=== PATIENT | male | born 1945 | race Caucasian/White ===

== ENCOUNTER → 2023-10-22 13:47 | Outpatient (REF) | payer MEDICARE, SELFPAY ==
[2023-10-22 17:53] LABS: Free T4 0.92 ng/dl (0.78-2.19); TSH 1.74 uIU/ml (0.47-4.68)
== END ==
LOC: RCS 13:47
PROVIDERS: ATTENDING PHYSICIAN Internal Medicine; FAMILY PHYSICIAN Internal Medicine Geriatric Medicine
DX: I42.8 Other cardiomyopathies (principal); I44.7 Left bundle-branch block, unspecified; I77.810 Thoracic aortic ectasia; E03.9 Hypothyroidism, unspecified
CPT/HCPCS: 36415; 84439; 84443; 93306

== ENCOUNTER → 2024-04-21 14:00 | Outpatient (REF) | payer MEDICARE, SELFPAY | LOC: RAD 14:00 | PROVIDERS: ATTENDING PHYSICIAN Internal Medicine; FAMILY PHYSICIAN Internal Medicine Geriatric Medicine | DX: R60.0 Localized edema (principal) | CPT/HCPCS: 93971 ==

== ENCOUNTER → 2024-08-29 09:59 | Outpatient (REF) | payer MEDICARE, SELFPAY ==
[2024-08-29 11:04] LABS: % Basophils 1.7 % (0-2); % Eosinophils 0.7 % (0-6); % Immature Granulocytes 0.1 % (0-0.5); % Lymphocytes 28.2 % (20.5-51.1); % Monocytes 7.5 % (1.7-9.3); % Neutrophils 61.8 % (42.2-75.2); Absolute Basophils 0.1 10^3/uL (0-0.2); Absolute Eosinophils 0.1 10^3/uL (0-0.7); Absolute Monocytes 0.5 10^3/uL (0.1-0.6); Absolute Neutrophils 4.4 10^3/uL (1.4-6.5); Hematocrit 48.3 % (39.0-52.0); Mean Corp Hgb Conc. 35.2 g/dL (33.0-37.0); Mean Corpuscular Hgb 32.5 pg (27.0-31.0); Mean Corpuscular Volume 92.4 fL (80.0-94.0); Mean Platelet Volume 9.4 fL (7.4-10.4); Nucleated Red Blood Cells % 0 % (-); Platelet Count 177 10^3/uL (130-400); Red Blood Cell Count 5.23 10^6/uL (4.70-6.10); Red Cell Dist. Width 13.2 % (11.5-14.5); Urine Albumin Negative (Neg - Trace); Urine Bilirubin Negative (Negative); Urine Character Clear (Clear); Urine Color Yellow; Urine Glucose Negative (Negative); Urine Ketone Negative (Negative); Urine Leukocyte Negative (Negative); Urine Nitrite Negative (Negative); Urine Occult Blood Negative (Negative); Urine Urobilinogen Negative (Neg - 1+); White Blood Cell Count 7.1 10^3/uL (4.8-10.8)
[2024-08-29 11:57] LABS: ALT (SGPT) 29 U/L (0-50); AST (SGOT) 32 U/L (17-59); Albumin 4.3 g/dl (3.5-5.0); Alkaline Phosphatase 52 U/L (38-126); Blood Urea Nitrogen 15 mg/dl (9-20); Calcium 9.7 mg/dl (8.4-10.2); Carbon Dioxide 26 mmol/L (22-30); Chloride 104 mmol/L (98-107); Glucose 102 mg/dl (70-99); HDL Cholesterol 74 mg/dl; LDL Cholesterol, Calculated 85 mg/dl; Potassium 4.5 mmol/L (3.5-5.1); Sodium 139 mmol/L (135-145); Total Cholesterol 181 mg/dl (50-199); Total Protein 7.3 g/dl (6.3-8.2); Triglyceride 110 mg/dl (10-149); Very Low Density Lipoprotein 22 mg/dl (0-30); eGFR > 60.00
[2024-08-29 12:02] LABS: Vitamin D, 25-OH*** 43.4 ng/mL (30-80)
[2024-08-29 12:16] LABS: PSA, Total - Screen 0.43 ng/ml (0.0-4.0)
== END ==
LOC: REG 09:59
PROVIDERS: ATTENDING PHYSICIAN Internal Medicine Geriatric Medicine
DX: E78.2 Mixed hyperlipidemia (principal); K58.9 Irritable bowel syndrome, unspecified; N40.0 Benign prostatic hyperplasia without lower urinary tract symptoms; E03.9 Hypothyroidism, unspecified; R73.03 Prediabetes; E78.00 Pure hypercholesterolemia, unspecified; E55.9 Vitamin D deficiency, unspecified; Z12.5 Encounter for screening for malignant neoplasm of prostate
CPT/HCPCS: 80053; 80061; 81003; 82306; 85025; G0103

== ENCOUNTER → 2024-12-16 15:59 | Outpatient (REF) | payer MEDICARE, SELFPAY ==
[2024-12-16 16:30] LABS: % Basophils 1.2 % (0-2); % Eosinophils 2.5 % (0-6); % Immature Granulocytes 0.1 % (0-0.5); % Lymphocytes 35.2 % (20.5-51.1); % Monocytes 9.9 % (1.7-9.3); % Neutrophils 51.1 % (42.2-75.2); Absolute Basophils 0.1 10^3/uL (0-0.2); Absolute Eosinophils 0.2 10^3/uL (0-0.7); Absolute Lymphocytes 2.4 10^3/uL (1.2-3.4); Absolute Monocytes 0.7 10^3/uL (0.1-0.6); Absolute Neutrophils 3.5 10^3/uL (1.4-6.5); Hematocrit 46.3 % (39.0-52.0); Hemoglobin 16.4 g/dL (13.0-18.0); Mean Corp Hgb Conc. 35.4 g/dL (33.0-37.0); Mean Corpuscular Hgb 32.3 pg (27.0-31.0); Mean Corpuscular Volume 91.3 fL (80.0-94.0); Mean Platelet Volume 9.4 fL (7.4-10.4); Nucleated Red Blood Cells % 0 % (-); Platelet Count 186 10^3/uL (130-400); Red Blood Cell Count 5.07 10^6/uL (4.70-6.10); Red Cell Dist. Width 13.6 % (11.5-14.5); Urine Albumin 1+ (Neg - Trace); Urine Bilirubin Negative (Negative); Urine Character Clear (Clear); Urine Color Yellow; Urine Glucose Negative (Negative); Urine Ketone Negative (Negative); Urine Leukocyte Negative (Negative); Urine Nitrite Negative (Negative); Urine Occult Blood Negative (Negative); Urine Urobilinogen Negative (Neg - 1+); White Blood Cell Count 6.9 10^3/uL (4.8-10.8)
[2024-12-16 16:37] LABS: Urine Bacteria Few (Negative); Urine Red Blood Cell 0-2 /HPF (0-2); Urine White Cell 0-2 /HPF (0-5)
[2024-12-16 16:44] LABS: Blood Urea Nitrogen 16 mg/dl (9-20); Calcium 9.9 mg/dl (8.4-10.2); Carbon Dioxide 26 mmol/L (22-30); Chloride 105 mmol/L (98-107); Glucose 151 mg/dl (70-99); Potassium 4.3 mmol/L (3.5-5.1); Sodium 140 mmol/L (135-145); eGFR > 60.00
== END ==
LOC: REG 15:59
PROVIDERS: ATTENDING PHYSICIAN Nurse Practitioner Family
DX: K59.00 Constipation, unspecified (principal); R10.2 Pelvic and perineal pain
CPT/HCPCS: 36415; 74018; 80048; 81003; 81015; 85025

== ENCOUNTER 2025-02-17 18:39 | Emergency (ER) | payer MEDICARE, SELFPAY ==
[2025-02-17 18:41] VITALS: BP 129/76
--- NOTE | 2025-02-17 20:29 | ED.GENMED ---
History of Present Illness
General
Chief Complaint: Skin Problem
Source: patient
Exam Limitations: none
Time Seen by Provider: 02/17/25 19:17
Nursing documentation reviewed up to this point in time: agreed with
History of Present Illness
History of Present Illness:
Patient states he sustained a crush injury to his thumb while on a boat fishing today. COmplains of pain and bleeding to distal right thumb. Brought to ED by spouse for roland
Past History
Past History
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
ED Past Surgical History: Cardiac (ICD) and Orthopedic (Right knee surgery)
Social History
Tobacco: Non-smoker
Alcohol: None
Drug: None
Personal:
Living: with family
Review of Systems
Review of Systems
Allergies reviewed?: Yes
All Other Systems: ROS reviewed and negative except as documented in HPI and ROS
Constitutional: Reports no symptoms
Musculoskeletal: Reports joint pain (pain swelling and brusing to distal right thumb)
Skin: Reports no symptoms
Neurological: Reports no symptoms
Psychiatric: Reports no symptoms
Phy Exam
General Physical Exam
General Presentation: well appearing and mild distress
General age: appears stated age
General Skin: warm and dry
General Habitus: normal
General Mental: alert
Musculoskeletal Exam
Musculoskeletal Exam: full ROM and neuro vasc intact
Skin Exam
Skin Exam: other (right thumb subungal hematoma. Digital block with lidocaine 1%, subungal hematoma drained using hot tip cautery.)
Psychiatric Exam
Psychiatric Exam: normal mood/affect
Course
Orders/Labs/Results
Orders:
Orders
02/17/25 18:50
CR Finger(s)/thumb Min 2 Vw Rt Urgent
Comment:
Reason For Exam: injury to thumb
Indicate Which Finger:: Thumb
Vital Signs
Initial and Last Documented VS:
Initial Vital Signs
Temp Pulse Resp BP Pulse Ox
97.9 F 63 16 129/76 95
02/17/25 18:41 02/17/25 18:41 02/17/25 18:41 02/17/25 18:41 02/17/25 18:41
Last Documented Vital Signs
Temp Pulse Resp BP Pulse Ox
97.9 F 63 16 129/76 95
02/17/25 18:41 02/17/25 18:41 02/17/25 18:41 02/17/25 18:41 02/17/25 18:41
*Radiology
Radiology exam reviewed: radiology read reviewed
*Pulse Oximetry
Patient hypoxic: no
*Critical Care Note
Total Time (30-74mins, 75-104mins- exclusive of procedures): Not Applicable
ED Attending Note
-
Portions of this chart may have been created with voice recognition software.� Occasional wrong word or��sound alike� substitutions may have occurred due to the inherent limitations of voice recognition software.
Discharge Plan
Departure
Patient Disposition: Home (Routine Discharge)
Date of Disposition: 02/17/25
Time of Disposition: 20:29
Patient with high blood pressure during this ER visit?: No
Condition: Good
Covid-19: Not Applicable
Discharge Problem:
Crush injury to thumb, Subungual hematoma
Instructions: Bruising Under the Nail, Contusion
Prescriptions:
No Action
atorvastatin 20 mg Tablet
20 mg PO QPM
levothyroxine 75 mcg Tablet
75 mcg PO DAILY
tamsulosin 0.4 mg Capsule
0.4 mg PO BID
ascorbic acid (vitamin C) 250 mg Tablet
350 mg PO DAILY
finasteride 5 mg Tablet
5 mg PO QPM
coenzyme Q10 [CoQ-10] 100 mg Capsule
200 mg PO QPM
cholecalciferol (vitamin D3) 50 mcg (2,000 unit) Tablet
50 mcg PO DAILY
Entresto 24-26 mg Tablet
1 tab PO BID Qty: 180 3RF
aspirin 81 mg Tablet,Chewable
81 mg PO DAILY Qty: 1 0RF
metoprolol succinate 50 mg Tablet Extended Release 24 Hr
50 mg PO DAILY Qty: 180 3RF
Activity Restrictions/Additional Instructions:
Follow up with your family doctor.
Interventions
Interventions:
*Risk Screen - Suicide Last Done: 02/17/25 18:43
*General Assessment Last Done: 02/17/25 18:51
*Neglect/Abuse Screening Last Done: 02/17/25 18:43
*ED- Fall Risk Assessment Last Done: 02/17/25 18:51
*ED COVID-19 Vaccine History Last Done: 02/17/25 18:51
*Nursing Disposition Last Done: 02/17/25 20:49
ED-Skin Assessment Last Done: 02/17/25 18:51
Discharge Date and Time
Discharge Date/Time: 02/17/25 20:49
Print Language: [id number]
Musculoskeletal Injury Exam
Musculoskeletal Injury Exam
Right Distal Thumb:
Pain with Movement?: Moderate
Tender to palpation?: Moderate
Soft tissue swelling?: Moderate
External deformity and angulation?: None
Joint effusion?: None
Contusion?: Moderate
Hematoma-local bleeding into tissue?: Moderate
Strain- Sprain- Tear (Connective tissue injury)?: None
Crepitus with movement?: No
Joint instability?: No
Malalignment/deformity?: No
Range of motion: Full
Distal skin color and temperature: normal-warm & good color
Capillary Refill: normal
Normal distal neurovascular exam?: No
== END 2025-02-17 20:49 | disposition home or self-care (01) ==
LOC: EMR 18:39
PROVIDERS: EMERGENCY PHYSICIAN Emergency Medicine; FAMILY PHYSICIAN Internal Medicine Geriatric Medicine
DX: S67.01XA Crushing injury of right thumb, initial encounter (principal); S60.111A Contusion of right thumb with damage to nail, initial encounter; W23.0XXA Caught, crushed, jammed, or pinched between moving objects, initial encounter; E03.9 Hypothyroidism, unspecified; E11.9 Type 2 diabetes mellitus without complications; E78.00 Pure hypercholesterolemia, unspecified; I10 Essential (primary) hypertension
CPT/HCPCS: 11740; 99283; 73140

== ENCOUNTER → 2025-07-26 06:20 | Outpatient (REF) | payer MEDICARE, SELFPAY | LOC: RAD 06:20 | PROVIDERS: ATTENDING PHYSICIAN Internal Medicine; FAMILY PHYSICIAN Internal Medicine Geriatric Medicine | DX: I77.810 Thoracic aortic ectasia (principal) | CPT/HCPCS: 76770 ==

== ENCOUNTER → 2025-07-28 12:34 | Outpatient (REF) | payer MEDICARE, SELFPAY ==
--- NOTE | 2025-07-28 14:15 | CARDSERVLU ---
Echocardiogram with Lumason completed after protocol screening completed. Allergies verified.
Patent IV site: __Rt FA__
IV site flushed with 0.9% NaCl pre and post administration.
Diluted bolus method utilized to enhance visualization of ventricular najera.
Total volume given: __3.5__ mL
Patient tolerated all procedures well without complications.
#22 sherman placed Rt FA. Lumason given. INT d/c'd. pressure held. No bleeding noted.
== END ==
LOC: RCS 12:34
PROVIDERS: ATTENDING PHYSICIAN Internal Medicine; FAMILY PHYSICIAN Internal Medicine Geriatric Medicine
DX: I42.8 Other cardiomyopathies (principal); I44.7 Left bundle-branch block, unspecified; I47.29 Other ventricular tachycardia; I47.10 Supraventricular tachycardia, unspecified; I45.2 Bifascicular block
CPT/HCPCS: 93306; Q9950